=== PATIENT | male | born 1980 | race Two or more races ===

== ENCOUNTER 2019-06-23 18:01 | Emergency (ER) | payer SELFPAY ==
[~2019-06-23] VITALS: Ht 167.6 cm; Wt 73.0 kg
[2019-06-23] MEDS ORDERED: ONDANSETRON HCL 4MG/2ML INJ IV STA (20:26)
[2019-06-23] MEDS ORDERED: SODIUM CHLORIDE 0.9% 1,000 ML IV ONE (20:26)
[2019-06-23 20:40] LABS: BASOPHILS % 2.1 % (0.0-2.0); EOSINOPHILS % 1.7 % (0.0-5.0); HEMATOCRIT. 45.7 % (42.0-52.0); HEMOGLOBIN. 15.2 g/dL (14.0-18.0); LYMPHOCYTES % 58.3 % (20.0-50.0); MEAN CORPUSCULAR HEMOGLOBIN 28.8 pg (28.0-32.0); MEAN CORPUSCULAR VOLUME 86.2 fL (80.0-94.0); MEAN PLATELET VOLUME 7.7 fl (7.4-10.4); MONOCYTES % 7.1 % (2.0-8.0); NEUTROPHILS % 30.8 % (40.0-76.0); PLATELET 221 x1000/uL (130-400); RED CELL DISTRIBUTION WIDTH 19.2 % (11.6-14.6)
[2019-06-23 20:45] LABS: CHLORIDE 106 mEq/L (98-107)
[2019-06-23 20:53] LABS: CREATINE KINASE 252 IU/L (39-308)
[2019-06-23 20:56] LABS: CREATINE KINASE MB FRACTION < 1.0 ng/mL (0.5-3.6)
[2019-06-23 21:14] LABS: ETHANOL BLOOD 466 mg/dL
[2019-06-23 22:00] LABS: *COCAINE SCREEN URINE NEGATIVE (NEGATIVE); CANNABINOID URINE SCREEN NEGATIVE (NEGATIVE); METHADONE URINE SCREEN NEGATIVE (NEGATIVE); OPIATES URINE SCREEN NEGATIVE (NEGATIVE); PHENCYCLIDINE URINE SCREEN NEGATIVE (NEGATIVE)
[2019-06-23 22:01] LABS: *AMPHETAMINES SCREEN URINE NEGATIVE (NEGATIVE); *BARBITURATES SCREEN URINE NEGATIVE (NEGATIVE); *BENZODIAZEPINES SCREEN URINE NEGATIVE (NEGATIVE)
[2019-06-24 05:26] VITALS: BP 118/81
== END 2019-06-24 05:30 | disposition home or self-care (01) ==
LOC: ER 18:01
DX: G92 Toxic encephalopathy (principal); T51.91XA Toxic effect of unspecified alcohol, accidental (unintentional), initial encounter; R53.1 Weakness; Y92.89 Other specified places as the place of occurrence of the external cause
CPT/HCPCS: 36415; 80053; 80305; 80320; 82550; 82553; 84443; 84484; 85025; 93005; 96374; 99284; J2405; J7030; Z7610; G0480